=== PATIENT | female | born 1960 | race Two or more races ===

== ENCOUNTER 2025-01-12 06:22 | Day surgery (SDC) | payer OTHER ==
[2025-01-11 13:50] VITALS: BMI 23.3
[2025-01-12 09:25] VITALS: TEMP 97.4
[2025-01-12 10:05] VITALS: RESP 18
[2025-01-12 10:22] VITALS: BP 140/77; PULSE 58
== END 2025-01-12 10:21 | disposition home or self-care (01) ==
LOC: JASU-ENDO 06:22
PROVIDERS: ATTEND Internal Medicine Gastroenterology
PROC: 0DBK8ZX Excision of Ascending Colon, Via Natural or Artificial Opening Endoscopic, Diagnostic (ICD-10-PCS; principal; 2025-01-12 08:30)
DX: Z12.11 Encounter for screening for malignant neoplasm of colon (principal); K57.30 Diverticulosis of large intestine without perforation or abscess without bleeding; D12.2 Benign neoplasm of ascending colon; K64.8 Other hemorrhoids
CPT/HCPCS: 88305-TC